=== PATIENT | female | born 1950 | race Caucasian/White ===

== ENCOUNTER 2019-04-01 22:10 | Emergency (ER) | payer OTHER, SELFPAY ==
[2019-04-01 22:12] VITALS: BP 141/80; PULSE 82; RESP 18; TEMP 36.1; O2SAT 98; BMI 23.4
--- NOTE | 2019-04-01 22:36 | EKG12_ITS ---
Test Reason : CP Blood Pressure : / mmHG Vent. Rate : 082 BPM Atrial Rate : 082 BPM P-R Int : 150 ms QRS Dur : 084 ms QT Int : 372 ms P-R-T Axes : 046 002 040 degrees QTc Int : 434 ms Normal sinus rhythm Normal ECG Confirmed by SANDHYA CHAVEZ, MOLLY ([id number]), news videotape editor CHRIS NETTLES ([id number]) on 04/03/2019 10:16:25 A M Referred By: RAMAN Confirmed By:CHANTE ARTHUR MD
--- NOTE | 2019-04-01 22:37 | RAD_ITS ---
STUDY: X-RAY CHEST REASON FOR EXAM: Female, 69 years old. Chest pain. TECHNIQUE: PA and lateral chest. COMPARISON: None. FINDINGS: Left lower lobe granuloma. Lung dukes are otherwise clear. There is no demonstrated pleural abnormality. Normal size heart. Normal mediastinum and santiago. Normal visualized pulmonary arteries. Normal visualized aortic arch and descending thoracic aorta. Normal visualized thoracic spine. Normal visualized ribs, clavicles, and shoulders. There is no demonstrated abnormality of the visualized soft tissue structures of the upper abdomen. RAD/Chest PA and Lateral IMPRESSION: 1. No acute findings. 2. Old granulomatous disease. Electronically Signed: Imelda Long MD at 22:55 EDT Tel , Service support ,
--- NOTE | 2019-04-01 22:37 | ED.VIS.GEN ---
History of Present Illness Chief Complaint: Chest Pain Informant: Patient Narrative: There is presents with chest discomfort. It is resolved currently. It started approximately 5 and half hours ago and lasted for 5 hours. Left-sided tightness. Radiation to the left shoulder blade associate with nausea. Denies any other associated symptoms. It was not exertion related. She had similar event 4 years ago it resolved on its own. Patient stated she had a migraine this morning and took her migraine medication and run away and is unsure if this is a side effect from her migraine medicine. Worsened by nothing. Relieved with time. Denies any cardiac risk factors including diabetes, hypertension, high cholesterol, history of smoking, family history. Denies any pulmonary embolism risk factors including recent trips leg pain or history of PE. Denies any dissection risk factors. No previous stress test or heart cath. She took Advil earlier this evening Past Medical History - Allergies and Home Meds Allergies/Adverse Reactions: Allergies No Known Allergies Allergy (Verified 04/01/19 22:12) Primary Care Physician: Connor Brink DO [Primary Care Provider] - Prior records reviewed: Yes Past Medical History: - - Migraine Lives: With Family Smoking Status: Never smoker Alcohol: None Drugs: None Review of Systems General: Denies: Chills, Fever, Sweats Eyes: Denies: Visual changes - bilaterally, Diplopia ENT: Denies: Rhinorrhea, Sore throat Cardiovascular: Reports: Chest pain. Denies: Palpitations Respiratory: Denies: Dyspnea, Cough, Dyspnea on exertion Gastrointestinal: Reports: Nausea. Denies: Abdominal pain, Vomiting, Diarrhea, Melena, Hematochezia Genitourinary: Denies: Dysuria, Hematuria, Frequency Musculoskeletal: Denies: Back pain, Extremity Pain Skin: Denies: Rash, Wounds Neurological: Denies: Headache, Weakness, Numbness Physical Exam Vital Signs/Narrative: Vital Signs Temp Pulse Resp BP Pulse Ox 04/01/19 22:12 97.0 F L 82 18 141/80 H 98 General: Well nourished, Well developed, No Acute Distress Head: Normocephalic, Atraumatic Eyes: Perrl, EOMI ENT: Moist mucous membranes, No rhinorrhea Neck: Supple, Nontender Cardiovascular: Regular rate, Regular rhythm, No murmurs Respiratory: No distress, CTA bilaterally, Chest nontender Abdomen: Soft, Nontender, Nondistended, Normal bowel sounds Back: Nontender, Normal Inspection Extremities: Nontender, No edema Skin: Normal color, No rash Neurological: Alert, Oriented x3, Cranial nerves II-XII grossly intact, Normal Strength, Normal Sensation Psychological: Normal affect, Normal Mood Diagnostic/Tx/Re-eval - Medical Decision Making EKG shows sinus rhythm at a rate of 82 without acute ischemia or arrhythmia. Lab work and chest x-ray obtained. Patient given a dose of aspirin x-ray normal. Lab work shows mild chronic renal insufficiency otherwise troponin and CBC negative. Patient remained stable without pain in the department. I discussed admission with the patient. I offered this to her. She is low risk heart score. She is PERC negative other than her age. I do not think she has a PE. The patient does not want to be admitted. She like to follow-up with her family doctor for outpatient work-up if it comes back she will return. ED Disposition - Plan for ED Patient: Disposition: Home or Assisted Living Diagnosis: Chest pain at rest Instructions: CHEST PAIN, NonCardiac Referrals: Connor Brink DO [Primary Care Provider] -
[2019-04-01 22:42] LABS: Absolute Lymphocyte Count 3.38 X10^3/uL (0.83-4.51); Absolute Neutrophil Count 4.7 X10^3/uL (2.0-7.7); Basophil# 0.06 X10^3/uL; Basophil% 0.7 % (0-1); Eosinophil# 0.22 X10^3/uL; Eosinophils% 2.4 % (0-5); Hematocrit 42.1 % (37-47); Hemoglobin 13.3 g/dL (12.0-15.0); Lymphocyte # 3.38 X10^3/ul (4.0); Lymphocyte % 37.1 % (19-41); Mean Corp Hgb Conc 31.6 g/dL (32-36); Mean Corpuscular Hgb 30.5 pg (27.0-32.0); Mean Corpuscular Volume 96.6 fL (81-99); Monocyte# 0.76 X10^3/uL; Monocyte% 8.3 % (0-10); NRBC Flagged by Analyzer 0 % (0-5); Neutrophil # 4.68 X10^3/uL (2.7-7.7); Neutrophil % 51.3 % (47-70); Platelet Count 245 K/mm3 (150-450); RBC Distribution Width CV 13.2 % (11.6-14.6); RBC Distribution Width SD 46.9 fl (35.1-43.9); Red Blood Count 4.36 M/mm3 (4.2-5.4); White Blood Count 9.1 K/mm3 (4.4-11.0)
[2019-04-01] MEDS: Aspirin 81 MG TAB.CHEW 324 MG PO (22:48)
[2019-04-01 22:50] VITALS: O2SAT 97
[2019-04-01 22:56] LABS: Anion Gap 5 (5-15); BUN 18 mg/dL (7-18); Calcium,Total 9.4 mg/dL (8.5-10.1); Chloride 106 mmol/L (98-107); Creatinine, Serum 1.29 mg/dL (0.55-1.02); EST Glomerular Filtration Rate 44 mL/min (>60); Est Glom Filt Rate - Afr Amer 53 mL/min (>60); Glucose 100 mg/dL (74-106); Potassium 3.5 mmol/L (3.5-5.1); Sodium Level 139 mmol/L (136-145)
[2019-04-01 23:14] VITALS: BP 132/77; PULSE 80; RESP 14; O2SAT 98
== END 2019-04-01 23:15 | disposition home or self-care (01) ==
PROVIDERS: Emergency Provider Emergency Medicine; Family Provider Family Medicine; PCP Family Medicine
DX: R07.9 Chest pain, unspecified (principal); G43.909 Migraine, unspecified, not intractable, without status migrainosus
CPT/HCPCS: 71046; 80048; 84484; 85025; 93005; 99285; A4216

== ENCOUNTER → 2019-08-19 10:06 | Outpatient (CLI) | payer MEDICARE, SELFPAY ==
--- NOTE | 2019-08-19 10:11 | BI_ITS ---
MAMMOGRAPHY - BILATERAL SCREENING REASON FOR EXAM: Female, 69 years old. Routine annual screening examination. PERTINENT HISTORY: Non-contributory. TECHNIQUE: Digital bilateral breast lauren (3D mammographic acquisition) in the CC and MLO projections. 2-D mediolateral oblique (MLO) and craniocaudad (CC) views of both breasts were obtained. CAD: Full Field Digital Mammography with Computer Added Detection was performed. COMPARISON: Comparison is made with prior outside examination dated September 06, 2016. FINDINGS: Breast Composition: There are scattered areas of fibroglandular density. There are no dominant masses or suspicious calcifications. No other significant abnormalities are identified. There has been no significant change since the prior study. BI/SCREEN MAMM (CAD) W/LAUREN BILAT IMPRESSION: Stable bilateral screening mammogram. Yearly follow-up mammogram recommended. (A) ASSESSMENT CATEGORY: BIRADS Category 1: Negative. A letter regarding these results will be sent to the patient by the facility within 30 days. Approximately 10% of breast cancers are not detected by mammography. A normal mammogram should not delay biopsy of a clinically suspicious abnormality. [id number] Electronically Signed: Eugene De Leno, at 14:19 EST , Service support ,
--- NOTE | 2019-08-19 10:29 | BD_ITS ---
STUDY: DUAL ENERGY X-RAY ABSORPTIOMETRY / DXA REASON FOR EXAM: Female, 69 years old. 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 COMPARISON: None. FINDINGS: Lumbar Spine (L1-L4): g/cm2 (0.801) / T-score (-3.2) / Z-score (-1.5) Findings are suggestive of osteoporosis with a high fracture risk. Increased kyphosis. Left Femur Total: g/cm2 (0.700) / T-score (-2.4) / Z-score (-1.1) Left Femoral Neck: g/cm2 (0.606) / T-score (-3.1) / Z-score (-1.5) Right Femur Total: g/cm2 (0.636) / T-score (-3.0) / Z-score (-1.6) Right Femoral Neck: g/cm2 (0.600) / T-score (-3.1) / Z-score (-1.6) BD/Dexa Bone Density Study IMPRESSION: The patient is considered osteoporotic as outlined below according to World Mikey Organization (WHO) criteria with a high fracture risk. Reference Information: The T-score is the number of standard deviations above or below the standard which is normal for young adults at their peak bone mineral density. The World Health Organization (WHO) interprets the T-scores as follows: Above -1 Normal bone density Between -1 and -2.5 Osteopenia Equal to / or below -2.5 Osteoporosis As a practical clinical guideline, osteopenia may be graded as follows: Mild -1 through -1.5 Moderate -1.6 through -2.0 Severe -2.1 through -2.4 The Z-score is the number of standard deviations above or below age-matched controls. A Z-score of less than -1.5 would be considered abnormal. References: 1. NIH Osteoporosis and Related Bone Diseases http://www.osteo.org 2. International Society for Clinical Densitometry http://www.iscd.org 3. National Osteoporosis Foundation http://www.nof.org Electronically Signed: Eugene De Leon, at 15:12 EST , Service support ,
== END ==
LOC: OPBD 10:07
PROVIDERS: PCP Internal Medicine; Referring Provider Internal Medicine; Visit Provider Internal Medicine
DX: Z12.31 Encounter for screening mammogram for malignant neoplasm of breast (principal); Z78.0 Asymptomatic menopausal state
CPT/HCPCS: 77063; 77067; 77080

== ENCOUNTER 2022-03-22 15:11 | Emergency (ER) | payer MEDICARE, SELFPAY ==
[2022-03-22 15:13] VITALS: BP 100/85; PULSE 84; RESP 16; TEMP 36.6; O2SAT 98; BMI 20.6
--- NOTE | 2022-03-22 16:21 | EDS_ITS ---
HPI History of Present Illness Chief Complaint: General Illness Informant: patient Onset/Context/Timing Onset: Days Context: Gradual Onset Timing: Continuous Quality: Sharp Location: Left lower premolar Worsened by: Chewing and biting Relieved by: Nothing Narrative Narrative: Patient presents with left lower dental infection that has been getting worse over the past few days. Patient states this is making her feel nauseated. Patient states it also made her have palpitations where she felt like her heart was racing. Patient denies any vomiting. Patient denies any fevers or chills. Patient states her pain is over the left lower premolar area. Patient describes it as sharp. Patient describes her nausea as a sickly feeling. Patient states her pain is worse whenever she chews or bites down on her left lower premolars. Patient denies any sore throat or difficulty swallowing. PFSH PFSH Medical History no medical history no medical history Home Medications penicillin V potassium 500 mg tablet 500 mg PO 4X/DAY #40 tabs 03/22/22 [Rx Last Taken Unknown] Allergy/AdvReac Type Severity Reaction Status Date / Time No Known Allergies Allergy Verified 03/22/22 15:14 Surgical History (Updated 03/22/22 @ 17:01 by Mirna Remy) History of History of hysterectomy Hx of oral surgery Social History Smoking Status: Never smoker ROS ROS ED Constitutional Constitutional ED: Denies chills or fever(s) Eyes Eyes: Denies blurry vision or change in vision ENT ENT ED: Denies rhinorrhea or sore throat Cardiovascular Cardiovascular: Reports palpitations and racing heartbeat; Denies chest pain Respiratory/Chest Respiratory/Chest: Denies cough or dyspnea Gastrointestinal Gastrointestinal: Reports nausea; Denies vomiting Genitourinary Genitourinary ED: Denies dysuria or hematuria Musculoskeletal Musculoskeletal: Denies back pain or neck pain Integumentary Denies abscess or rash Neurologic Neurologic: Reports headache(s); Denies weakness Allergic/Immunologic Allergic/Immunologic ED: Denies mouth swelling or urticaria EXAM Physical Exam Const Vital Signs: 03/22/22 15:13 03/22/22 17:00 03/22/22 17:07 Temperature 97.8 F Temperature Source Temporal Pulse Rate 84 65 Respiratory Rate 16 13 Respiratory Effort Normal Non-Labored Respiratory Pattern Normal Blood Pressure 100/85 H 132/71 H Blood Pressure Mean 90 91 Pulse Ox 98 100 Oxygen Delivery Method Room Air Room Air Positive well nourished and well developed General Appearance ED: well developed and NAD HEENT Reports moist mucous membranes HEENT Narrative: There is some gingival edema noted over the left lower second premolar. There is no fluctuance. There is no discharge or drainage. There is no sublingual edema or erythema. There is no evidence of Jason's angina. Neck supple and no JVD General: Negative for tenderness Resp normal respiratory effort and clear to auscultation bilaterally Cardio regular rate, regular rhythm and no murmurs GI normal to inspection, nondistended, normoactive bowel sounds and non-tender Palpation: soft Extremity normal to inspection General Extremety ED: Negative for edema or tenderness General Extremity: Negative for edema Neuro oriented x3, CN's II-XII intact bilaterally and no sensory deficits noted Sensorium / Orientation: alert Motor Exam: strength 5/5 throughout Psych mental status grossly normal Skin no rashes or lesions noted MDM MDM MDM Narrative Medical decision making narrative: EKG was obtained. On my interpretation, it showed a normal sinus rhythm with a rate of 64. MA interval, QRS interval, and QTc intervals were all normal. Brewster was normal. There are no acute ST or T wave changes. CBC was within normal limits. Basic metabolic profile was essentially within normal limits. High- sensitivity troponin was normal. Patient was given a dose of Pen-Vee K here. Patient was given a prescription for Pen-Vee K. Patient was instructed to follow-up with her primary care physician in 5 to 7 days. Patient was also instructed to follow-up with her dentist. Patient understood and was agreeable with the plan. All questions were answered. Lab Data Attestation: I reviewed the patient's lab results. Labs: Laboratory Results - last 24 hr 03/22/22 03/22/22 17:32 17:32 WBC 3.7 L RBC 4.73 Hgb 14.3 Hct 44.7 MCV 94.5 MCH 30.2 MCHC 32.0 RDW Std Deviation 46.3 H RDW Coeff of Lester 13.2 Plt Count 147 L MPV 9.4 Immature Gran % (Auto) 0.000 Neut % (Auto) 44.6 L Lymph % (Auto) 40.5 [place] % (Auto) 14.1 H Eos % (Auto) 0.3 Baso % (Auto) 0.5 Absolute Neuts (auto) 1.6 L Absolute Lymphs (auto) 1.49 Nucleated RBC % 0 Differential Comment SCANNED Reactive Lymphocytes 1+ Sodium 140 Potassium 3.8 Chloride 105 Carbon Dioxide 26.0 Anion Gap 9 BUN 16 Creatinine 1.11 H Estim Creat Clear Calc 33.87 Est GFR (MDRD) Af Amer 63 Est GFR (MDRD) Non-Af 52 L BUN/Creatinine Ratio 14.4 Glucose 94 Calcium 9.6 Troponin I High Sens 9 EKG Initial EKG: Attestation: I personally reviewed and interpreted this EKG as follows: Interpretation: Sinus Rhythm (64) and No Acute Injury Pattern Prior EKG tracings: available for review Prior: Unchanged (04/01/2019) Discharge Plan Triage Chief Complaint: General Illness Other Complaint: Dental ED Provider: Cristo Wilkes Dx/Rx/DC Orders Clinical Impression: Abscess, dental, Palpitations Instructions: ED Dental Abscess, ED Palpitations Prescriptions: New penicillin V potassium 500 MG tablet 500 mg PO 4X/DAY Qty: 40 0RF Primary Care Provider: Rekha Bearden Referrals: Rekha Bearden DO [Primary Care Provider] - 5-7 Days Disposition Disposition: Home, Self Care
--- NOTE | 2022-03-22 16:27 | EKG12_ITS ---
Test Reason : NOT FEELING WELL Blood Pressure : / mmHG Vent. Rate : 064 BPM Atrial Rate : 064 BPM P-R Int : 146 ms QRS Dur : 070 ms QT Int : 394 ms P-R-T Axes : 062 006 046 degrees QTc Int : 406 ms Normal sinus rhythm Normal ECG Confirmed by HUMA CHAVEZ, ABRAHAM ([id number]), book or script editor LARA JOHNS ([id number]) on 03/24/2022 9:32:22 AM Referred By: Confirmed By:ABRAHAM FINN MD
[2022-03-22 16:54] LABS: Absolute Lymphocyte Count 1.49 X10^3/uL (0.83-4.51); Absolute Neutrophil Count 1.6 X10^3/uL (2.0-7.7); Basophil# 0.02 X10^3/uL; Basophil% 0.5 % (0-1); Eosinophil# 0.01 X10^3/uL; Eosinophils% 0.3 % (0-5); Hematocrit 44.7 % (37-47); Hemoglobin 14.3 g/dL (12.0-15.0); Lymphocyte # 1.49 X10^3/ul (0.83-4.51); Lymphocyte % 40.5 % (19-41); Mean Corpuscular Hgb 30.2 pg (27.0-32.0); Mean Corpuscular Volume 94.5 fL (81-99); Mean Platelet Vol. 9.4 fl (6.2-12.0); Monocyte# 0.52 X10^3/uL; Monocyte% 14.1 % (0-10); NRBC Flagged by Analyzer 0 % (0-5); Neutrophil # 1.64 X10^3/uL (2.7-7.7); Neutrophil % 44.6 % (47-70); POSITIVE MORPHOLOGY YES; Platelet Count 147 K/mm3 (150-450); RBC Distribution Width CV 13.2 % (11.6-14.6); RBC Distribution Width SD 46.3 fl (35.1-43.9); Red Blood Count 4.73 M/mm3 (4.2-5.4); White Blood Count 3.7 K/mm3 (4.4-11.0)
[2022-03-22 16:55] LABS: Differential Indicated SCAN CRITERIA MET
[2022-03-22] MEDS: Penicillin Vk 250 MG Tablet 500 MG PO (16:58)
[2022-03-22 17:07] VITALS: BP 132/71; PULSE 65; RESP 13; O2SAT 100
[2022-03-22 17:11] LABS: Differential Comment SCANNED; Reactive Lymphocyte 1+
[2022-03-22 17:15] LABS: Anion Gap 9 (5-15); BUN 16 mg/dL (7-18); BUN/Creat Ratio 14.4 RATIO (10-20); Calcium,Total 9.6 mg/dL (8.5-10.1); Chloride 105 mmol/L (98-107); Creatinine, Serum 1.11 mg/dL (0.55-1.02); EST Glomerular Filtration Rate 52 mL/min (>60); Est Glom Filt Rate - Afr Amer 63 mL/min (>60); Estimated Creatinine Clearance 33.87 ml/min; Glucose 94 mg/dL (74-106); Potassium 3.8 mmol/L (3.5-5.1); Sodium Level 140 mmol/L (136-145); Troponin-I HS 9 pg/mL (3.0-54.0)
[2022-03-22 17:55] VITALS: BP 142/76; PULSE 77; RESP 16; O2SAT 97
== END 2022-03-22 17:56 | disposition home or self-care (01) ==
PROVIDERS: Emergency Provider Emergency Medicine; PCP Internal Medicine; Visit Provider Emergency Medicine
DX: K04.7 Periapical abscess without sinus (principal); R00.2 Palpitations
CPT/HCPCS: 80048; 84484; 85025; 93005; 99284; A4216

== ENCOUNTER → 2022-05-01 | Outpatient (CLI) | payer MEDICARE, SELFPAY ==
--- NOTE | 2022-05-01 14:49 | EKG12_ITS ---
Test Reason : PRE-OP Blood Pressure : / mmHG Vent. Rate : 067 BPM Atrial Rate : 067 BPM P-R Int : 152 ms QRS Dur : 070 ms QT Int : 370 ms P-R-T Axes : 064 003 032 degrees QTc Int : 390 ms Normal sinus rhythm Normal ECG Confirmed by REESE CHAVEZ, ARIELLA ([id number]), non linear editor CHRIS NETTLES ([id number]) on 05/02/2022 11:06:54 AM Referred By: JOSE R Confirmed By:ARIELLA LEIGH MD
--- NOTE | 2022-05-01 14:49 | CT_ITS ---
STUDY: CT LEFT FEMUR WITHOUT CONTRAST REASON FOR EXAM: Female, 72 years old. PRE OP WASC/VARUS DEFORMIT- SHANNAN PROTOCOL RADIATION DOSAGE (If Supplied By Facility): CTDIvol = ( 17.34 ) mGy, DLP = ( 1179.61 ) mGycm TECHNIQUE: Transaxial CT imaging of the femur was performed. Sagittal and coronal images were reconstructed. Individualized dose optimization techniques were used for this CT. COMPARISON: None. FINDINGS: There is moderate joint space narrowing of the left hip. There is moderate osteoarthritis involving the knee more pronounced involving the medial compartment. The left femur appears intact without evidence of fracture, subluxation or dislocation. There is no evidence of periosteal reaction. There is a moderate suprapatellar joint effusion. Skin marker is placed along the anterolateral aspect of the left thigh. The skin and subcutaneous tissues and regional musculature appears intact. There is a moderate-sized Pate''s cyst measuring 2.5 cm transverse by 2.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 Pate''s cyst. Moderate suprapatellar joint effusion. Electronically Signed: Waqas Dasilva MD, MAR at 16:44 EDT ,
[2022-05-01 15:54] LABS: Absolute Lymphocyte Count 2.08 X10^3/uL (0.83-4.51); Absolute Neutrophil Count 4.7 X10^3/uL (2.0-7.7); Basophil# 0.05 X10^3/uL; Basophil% 0.7 % (0-1); Eosinophil# 0.08 X10^3/uL; Eosinophils% 1.1 % (0-5); Hematocrit 42.5 % (37-47); Hemoglobin 13.6 g/dL (12.0-15.0); Lymphocyte # 2.08 X10^3/ul (0.83-4.51); Lymphocyte % 27.5 % (19-41); Mean Corpuscular Hgb 30.2 pg (27.0-32.0); Mean Corpuscular Volume 94.4 fL (81-99); Mean Platelet Vol. 9.3 fl (6.2-12.0); Monocyte# 0.63 X10^3/uL; Monocyte% 8.3 % (0-10); NRBC Flagged by Analyzer 0 % (0-5); Neutrophil # 4.71 X10^3/uL (2.7-7.7); Neutrophil % 62.1 % (47-70); Platelet Count 235 K/mm3 (150-450); RBC Distribution Width CV 13.2 % (11.6-14.6); RBC Distribution Width SD 45.9 fl (35.1-43.9); White Blood Count 7.6 K/mm3 (4.4-11.0)
[2022-05-01 16:15] LABS: Hemoglobin A1c 5.5 % (3.8-5.6)
[2022-05-01 16:36] LABS: Albumin, Serum 3.8 g/dL (3.2-5.0); Anion Gap 4 (5-15); BUN 15 mg/dL (7-18); BUN/Creat Ratio 10.9 RATIO (10-20); Calcium,Total 9.7 mg/dL (8.5-10.1); Chloride 105 mmol/L (98-107); Creatinine, Serum 1.37 mg/dL (0.55-1.02); EST Glomerular Filtration Rate 41 mL/min (>60); Est Glom Filt Rate - Afr Amer 49 mL/min (>60); Glucose 103 mg/dL (74-106); Sodium Level 140 mmol/L (136-145)
== END | disposition home or self-care (01) ==
PROVIDERS: PCP Internal Medicine; Visit Provider Physician Assistant
DX: M21.162 Varus deformity, not elsewhere classified, left knee (principal); Z01.818 Encounter for other preprocedural examination
CPT/HCPCS: 36415; 73700; 80048; 82040; 83036; 85025; 93005

== ENCOUNTER → 2022-08-28 | Outpatient (CLI) | payer MEDICARE, SELFPAY ==
[2022-08-28 16:14] LABS: Absolute Neutrophil Count 4.3 X10^3/uL (2.0-7.7); Basophil# 0.06 X10^3/uL; Basophil% 0.8 % (0-1); Eosinophil# 0.08 X10^3/uL; Eosinophils% 1.1 % (0-5); Hematocrit 45.1 % (37-47); Hemoglobin 14.2 g/dL (12.0-15.0); Lymphocyte % 29.9 % (19-41); Mean Corp Hgb Conc 31.5 g/dL (32-36); Mean Corpuscular Hgb 30.5 pg (27.0-32.0); Mean Platelet Vol. 9.3 fl (6.2-12.0); Monocyte# 0.65 X10^3/uL; Monocyte% 8.8 % (0-10); NRBC Flagged by Analyzer 0 % (0-5); Neutrophil # 4.32 X10^3/uL (2.7-7.7); Neutrophil % 58.9 % (47-70); Platelet Count 235 K/mm3 (150-450); RBC Distribution Width CV 13.3 % (11.6-14.6); Red Blood Count 4.65 M/mm3 (4.2-5.4); White Blood Count 7.4 K/mm3 (4.4-11.0)
[2022-08-28 17:16] LABS: Vitamin B12 387 pg/mL (211-911)
[2022-08-28 17:22] LABS: ALB/GLOB Ratio 1.1 RATIO (0.9-2.4); AST(SGOT) 27 U/L (15-37); Alanine Aminotransfer ALT/SGPT 27 U/L (13-56); Albumin, Serum 3.8 g/dL (3.2-5.0); Alkaline Phosphatase 106 U/L (45-117); Anion Gap 6 (5-15); BUN 19 mg/dL (7-18); BUN/Creat Ratio 15.4 RATIO (10-20); Calcium,Total 9.9 mg/dL (8.5-10.1); Chloride 106 mmol/L (98-107); Creatinine, Serum 1.23 mg/dL (0.55-1.02); EST Glomerular Filtration Rate 46 mL/min (>60); Est Glom Filt Rate - Afr Amer 55 mL/min (>60); Globulin 3.6 g/dL (2.2-4.2); Glucose 77 mg/dL (74-106); Potassium 3.9 mmol/L (3.5-5.1); Protein, Total 7.4 g/dL (6.4-8.2); Sodium Level 142 mmol/L (136-145); T4 Free Direct 1.11 ng/dL (0.76-1.46)
== END | disposition home or self-care (01) ==
LOC: LAB 15:36
PROVIDERS: PCP Internal Medicine; Visit Provider Internal Medicine
DX: M19.90 Unspecified osteoarthritis, unspecified site (principal); R41.3 Other amnesia
CPT/HCPCS: 36415; 80053; 82607; 84439; 84443; 85025

== ENCOUNTER → 2022-09-04 | Outpatient (CLI) | payer MEDICARE, SELFPAY ==
--- NOTE | 2022-09-04 14:34 | MRI_ITS ---
STUDY: MRI BRAIN WITHOUT CONTRAST REASON FOR EXAM: Female, 72 years old. Memory Loss -- *Pt refused Coronal T2 and contrast images d/t clasutrophobia, confusion TECHNIQUE: Standardized multiplanar fat and water weighted pulse sequences were obtained. COMPARISON: None. FINDINGS: Mild atrophy and periventricular white matter ischemic change without mass effect or restricted diffusion. Normal bilateral basal ganglia. Normal thalami. There is no extra-axial fluid accumulation. Normal flow voids within the major intracranial circulation suggesting patency by spin echo criteria. Normal sella turcica, pituitary gland, infundibular stalk, optic chiasm and hypothalamus. Normal tectal plate and pineal gland. Normal midbrain, liss and medulla. Normal cerebellum. Normal basal cisterns. Normal bilateral temporal bones. Normal bilateral internal auditory canals. No demonstrated orbital abnormality, within the constraints of a routine brain study. Normal visualized paranasal sinuses. Normal calvarium and skull base. Normal visualized soft tissue structures. Normal visualized upper cervical spine. MRI/Brain without Contrast IMPRESSION: Mild atrophy and periventricular matter ischemic change. . No acute infarct or other significant abnormality Electronically Signed: Jermain Whitman MD at 16:42 EST Reading Location ID and State: [facility] / [place] , Service support ,
--- NOTE | 2022-09-04 14:40 | BD_ITS ---
STUDY: DUAL ENERGY X-RAY ABSORPTIOMETRY / DXA REASON FOR EXAM: Female, 72 years old. postmenapausel/osteoarthritis TECHNIQUE: Bone Mineral Density (BMD) measurements of lumbar spine and bilateral hips were obtained. COMPARISON: Comparison is made with prior study dated August 19, 2019. FINDINGS: Lumbar Spine (L1-L4): g/cm2 (0.748) / T-score (-2.7) / Z-score (-0.6) Findings are suggestive of osteoporosis with a high fracture risk. Left Femur Total: g/cm2 (0.491) / T-score (-3.7) / Z-score (-2.2) Left Femoral Neck: g/cm2 (0.391) / T-score (-4.1) / Z-score (-2.3) Right Femur Total: g/cm2 (0.500) / T-score (-3.6) / Z-score (-2.1) Right Femoral Neck: g/cm2 (0.404) / T-score (-4.0) / Z-score (-2.2) The T-Scores on the most recent prior examination were: Lumbar Spine (L1-L4): There has been improvement of bone density since the previous examination. Left Femur Total: which represents a worsening of 23.6%. Right Femur Total: which represents a worsening of 13.8%. BD/Dexa Bone Density Study IMPRESSION: The patient is considered osteoporotic as outlined below according to World Mikey Organization (WHO) criteria with a high fracture risk. There has been worsening of bone density since the previous examination. Reference Information: The T-score is the number of standard deviations above or below the standard which is normal for young adults at their peak bone mineral density. The World Health Organization (WHO) interprets the T-scores as follows: Above -1 Normal bone density Between -1 and -2.5 Osteopenia Equal to / or below -2.5 Osteoporosis As a practical clinical guideline, osteopenia may be graded as follows: Mild -1 through -1.5 Moderate -1.6 through -2.0 Severe -2.1 through -2.4 The Z-score is the number of standard deviations above or below age-matched controls. A Z-score of less than -1.5 would be considered abnormal. References: 1. NIH Osteoporosis and Related Bone Diseases www osteo.org 2. International Society for Clinical Densitometry www iscd.org 3. National Osteoporosis Foundation www nof.org Electronically Signed: Eugene De Leon MD at 13:35 EST ,
== END | disposition home or self-care (01) ==
PROVIDERS: PCP Internal Medicine; Referring Provider Internal Medicine; Visit Provider Internal Medicine
DX: R41.3 Other amnesia (principal); Z78.0 Asymptomatic menopausal state; M19.90 Unspecified osteoarthritis, unspecified site
CPT/HCPCS: 70551; 77080

== ENCOUNTER → 2022-09-06 | Outpatient (CLI) | payer MEDICARE, SELFPAY ==
[2022-09-06 17:32] LABS: Vitamin D,25 Hydroxy 43.8 ng/mL
== END | disposition home or self-care (01) ==
PROVIDERS: PCP Internal Medicine; Referring Provider Internal Medicine; Visit Provider Internal Medicine
DX: M81.0 Age-related osteoporosis without current pathological fracture (principal)
CPT/HCPCS: 36415; 82306

== ENCOUNTER 2023-03-27 15:34 | Emergency (ER) | payer MEDICARE, SELFPAY ==
[2023-03-27 15:38] VITALS: BP 122/76; PULSE 65; RESP 16; TEMP 36.6; O2SAT 100; BMI 18.2
--- NOTE | 2023-03-27 16:13 | ED.VIS.GI ---
HPI HPI - GI History of Present Illness Chief Complaint: Nausea/Vomiting Informant: patient and family Abdominal Pain/Flank Pain Onset: Days Context: Gradual Onset Timing: Intermittent Maximum Severity: Mild Nausea/Vomiting/Emesis GI Symptom: Positive for Nausea and Vomiting Onset: Today Severity: Mild Diarrhea/Melena/Hematochezia GI Symptom: Positive for Diarrhea Onset: Days Stool Quality: Positive for Loose Severity: Mild Associated Symptoms Associated Symptoms: Negative for Dysuria, Frequency, Hematuria or Urgency Narrative Narrative: 73-year-old female history of dementia lives at home. This year she has been on 4-6 different courses of p.o. penicillin due to a dental infection. 2 weeks ago she had a tooth removed. She has had some mild nausea very minimal vomiting and some loose stools. Family called the dental office who wanted her to be seen in the emergency department. No fever. No abdominal pain. No dysuria. Prior similar symptoms: Yes Recent Illness/Hospitalization: No PFSH PFSH Medical History Dementia Headache Health care maintenance Memory loss Osteoarthritis Osteoporosis Home Medications multivitamin 1 tab PO DAILY 09/06/22 [History Last Taken Unknown] donepezil 5 mg tablet See Rx Instructions .Route .COMPLEX #30 tabs 10/30/22 [Rx Last Taken Unknown] ondansetron 4 mg disintegrating tablet 4 mg PO Q6H PRN nausea and vomiting #7 tabs 03/27/23 [Rx Last Taken Unknown] Allergy/AdvReac Type Severity Reaction Status Date / Time No Known Allergies Allergy Verified 03/27/23 15:38 Surgical History History of History of hysterectomy Hx of oral surgery Social History Smoking Status: Never smoker alcohol intake: never substance use type: does not use ROS ROS ED ROS Narrative Nausea and loose stools. Review of Systems ROS Unobtainable: Denies due to encephalopathy Constitutional Constitutional ED: Denies chills or fever(s) ENT ENT ED: Denies ear pain Cardiovascular Cardiovascular: Denies chest pain or palpitations Respiratory/Chest Respiratory/Chest: Denies cough or dyspnea Gastrointestinal Gastrointestinal: Reports diarrhea, nausea and vomiting; Denies abdominal pain, constipation or melena Genitourinary Genitourinary ED: Denies dysuria or hematuria Musculoskeletal Musculoskeletal: Denies arthralgias, back pain, myalgias or neck pain Integumentary Denies abscess, Abrasions or rash Neurologic Neurologic: Denies headache(s) Psychiatric Psychiatric: Denies anxiety or depression Endocrine Endocrinology: Denies polydipsia or polyphagia Hematologic/Lymphatic Hematologic/Lymphatic: Denies easy bleeding or easy bruising Allergic/Immunologic Allergic/Immunologic ED: Denies mouth swelling or tongue swelling EXAM Physical Exam Narrative Exam Narrative: 73-year-old female no acute distress. Vital signs stable afebrile. 2 daughters present in room. H EENT exam unremarkable. Moist with membranes. No yeast infection. Neck nontender no lymphadenopathy. Lungs clear to auscultation. Heart regular rhythm rate about 65 no murmur. Chest wall nontender. Abdomen soft nontender. Nondistended normal bowel sounds no peritoneal signs. Moving all 4 extremities. Nontender no edema. Neurologically she is awake and alert with no focal motor deficits. Very benign exam. Const Vital Signs: 03/27/23 15:38 Temperature 97.9 F Temperature Source Temporal Pulse Rate 65 Respiratory Rate 16 Blood Pressure 122/76 H Blood Pressure Mean 91 Pulse Ox 100 Positive well nourished and well developed; Negative for obese, cachectic, contractures or unkempt General Appearance ED: well developed and NAD; Negative for unkempt, cachectic, contractures or pallor Nutritional Appearance: Negative for cachectic or obese HEENT Reports moist mucous membranes normocephalic and atraumatic; Negative for trauma or tenderness Eyes PERRL and EOMs intact bilaterally General Eye ED: Negative for pale conjunctiva or scleral icterus Neck no lymphadenopathy, supple and no JVD General: Negative for tenderness Carotids: Negative for other Lymph Lymphatic: Negative for other Resp normal respiratory effort and clear to auscultation bilaterally Effort and Inspection: Negative for respiratory distress Auscultation: Negative for rales, rhonchi, wheezes or diminished lung sounds Cardio regular rate, regular rhythm, S1 normal heart sound, S2 normal heart sound and no murmurs Rate: Negative for bradycardia or tachycardic Rhythm: Negative for abnormal rhythm GI non-tender, non-distended and no masses Inspection: Negative for abdominal distention Auscultation: normoactive bowel sounds Palpation: soft; Negative for tender, guarding, rigid, hepatomegaly, splenomegaly, hernia, mass, pulsatile mass or rebound tenderness present Back/Spine no CVA tenderness General Back: Negative for CVA tenderness Cervical Spine: Negative for cervical spine tenderness Thoracic Spine / Upper Back: Negative for thoracic spinal tenderness Lumbar Spine / Lower Back: Negative for lumbar spinal tenderness Coccyx: Negative for other Extremity full ROM General Extremety ED: Negative for edema or tenderness General Extremity: Negative for edema Neuro CN's II-XII intact bilaterally and moves all extremities Sensorium / Orientation: alert, oriented to person and oriented to place Motor Exam: strength 5/5 throughout Psych mental status grossly normal and thought process normal Appearance: Negative for unkempt Attitude: No agitated Mood & Affect: Negative for depressed, anxious or tearful Skin no wounds General Skin Exam: Negative for jaundice or pallor Lesions: no lesions Rashes: no rashes Trauma: Negative for abrasion Nails: Negative for discolored MDM MDM MDM Narrative Medical decision making narrative: 73-year-old female recently had a tooth pulled has been off and on amoxicillin for dental infections throughout the year. Clinically it really does not sound like C. difficile she has not had that much diarrhea. She might be mildly dehydrated but does not look significant dehydrated on exam. Her vital signs are stable exam is benign. Screening labs will be obtained and she will be treated a liter normal saline given Zofran for nausea. We will send a CT Steffes culture if she has a loose bowel movement. Repeat exam at 5:37 PM patient doing well. Abdomen benign. She will be discharged home with Zofran for nausea. I currently see no signs of a yeast infection in her mouth. Her diarrhea has seemed pretty benign and did not appear to be C. difficile and she has had no diarrhea here we are going to send her for culture she had 1. Uncomfortable with her being discharged home with Zofran for nausea fluids and rest I did explain to the family she is mildly dehydrated and outpatient follow-up. History & Record Review Discussion w/independent historian: Patient and Family Lab Data Attestation: I reviewed the patient's lab results. Lab results narrative: CBC unremarkable. White count 8.4. H&H of 13 and 44. Platelets 217. Electrolytes show a gap of 3 BUN and creatinine 24 and 1.1 consistent with mild dehydration. Glucose 140. Liver enzymes are unremarkable. Labs: Laboratory Results - last 24 hr 03/27/23 16:31 WBC 8.4 RBC 4.49 Hgb 13.9 Hct 44.0 MCV 98.0 MCH 31.0 MCHC 31.6 L RDW Std Deviation 47.8 H RDW Coeff of Lester 13.2 Plt Count 217 MPV 9.3 Immature Gran % (Auto) 0.500 Neut % (Auto) 84.9 H Lymph % (Auto) 10.9 L [place] % (Auto) 3.2 Eos % (Auto) 0.0 Baso % (Auto) 0.5 Absolute Neuts (auto) 7.1 Absolute Lymphs (auto) 0.91 Nucleated RBC % 0 Sodium 140 Potassium 4.7 Chloride 107 Carbon Dioxide 30.0 Anion Gap 3 L BUN 24 H Creatinine 1.13 H Estim Creat Clear Calc 30.54 Est GFR (MDRD) Af Amer 61 Est GFR (MDRD) Non-Af 50 L BUN/Creatinine Ratio 21.2 H Glucose 140 H Calcium 10.1 Total Bilirubin 0.40 AST 25 ALT 35 Alkaline Phosphatase 104 Total Protein 7.1 Albumin 3.9 Globulin 3.2 Albumin/Globulin Ratio 1.2 Discharge Plan Triage Chief Complaint: Nausea/Vomiting ED Provider: Abhijit Caldwell Dx/Rx/DC Orders Clinical Impression: Acute dehydration, History of dementia, Nausea & vomiting Instructions: ED Vomiting (Adult) Prescriptions: New ondansetron 4 mg tablet,disintegrating 4 mg PO Q6H PRN (Reason: nausea and vomiting) Qty: 7 0RF No Action multivitamin Tablet 1 tab PO DAILY donepezil 5 mg tablet See Rx Instructions .ROUTE .COMPLEX Qty: 30 1RF Dose Instruction: TAKE 1 TABLET BY MOUTH EVERYDAY AT BEDTIME Rx Instructions: TAKE 1 TABLET BY MOUTH EVERYDAY AT BEDTIME Primary Care Provider: Izaiah Freeman Referrals: Izaiah Freeman MD [Primary Care Provider] - 3-5 Days if not improving Activity Restrictions/Additional Instructions: Zofran as needed for nausea you may swallow or let dissolve under your tongue. Plenty of fluids and rest. You are mildly dehydrated. If you have continued diarrhea that may need to be checked with a stool culture. Follow-up with your doctor if not improving. Return if worse. Disposition Disposition: Home, Self Care
[2023-03-27] MEDS: Ondansetron 4 MG/2 ML Vial IV (16:30)
[2023-03-27] MEDS: 0.9% Normal Saline (1000mL) 1,000 ML 1000 ML IV (16:30)
[2023-03-27 16:47] LABS: Absolute Lymphocyte Count 0.91 X10^3/uL (0.83-4.51); Absolute Neutrophil Count 7.1 X10^3/uL (2.0-7.7); Basophil# 0.04 X10^3/uL; Basophil% 0.5 % (0-1); Hemoglobin 13.9 g/dL (12.0-15.0); Lymphocyte # 0.91 X10^3/ul (0.83-4.51); Lymphocyte % 10.9 % (19-41); Mean Corp Hgb Conc 31.6 g/dL (32-36); Mean Platelet Vol. 9.3 fl (6.2-12.0); Monocyte# 0.27 X10^3/uL; Monocyte% 3.2 % (0-10); NRBC Flagged by Analyzer 0 % (0-5); Neutrophil # 7.11 X10^3/uL (2.7-7.7); Neutrophil % 84.9 % (47-70); Platelet Count 217 K/mm3 (150-450); RBC Distribution Width CV 13.2 % (11.6-14.6); RBC Distribution Width SD 47.8 fl (35.1-43.9); Red Blood Count 4.49 M/mm3 (4.2-5.4); White Blood Count 8.4 K/mm3 (4.4-11.0)
[2023-03-27 16:59] LABS: ALB/GLOB Ratio 1.2 RATIO (0.9-2.4); AST(SGOT) 25 U/L (15-37); Alanine Aminotransfer ALT/SGPT 35 U/L (13-56); Albumin, Serum 3.9 g/dL (3.2-5.0); Alkaline Phosphatase 104 U/L (45-117); Anion Gap 3 (5-15); BUN 24 mg/dL (7-18); BUN/Creat Ratio 21.2 RATIO (10-20); Calcium,Total 10.1 mg/dL (8.5-10.1); Chloride 107 mmol/L (98-107); Creatinine, Serum 1.13 mg/dL (0.55-1.02); EST Glomerular Filtration Rate 50 mL/min (>60); Est Glom Filt Rate - Afr Amer 61 mL/min (>60); Estimated Creatinine Clearance 30.54 ml/min; Globulin 3.2 g/dL (2.2-4.2); Glucose 140 mg/dL (74-106); Potassium 4.7 mmol/L (3.5-5.1); Protein, Total 7.1 g/dL (6.4-8.2); Sodium Level 140 mmol/L (136-145)
[2023-03-27 18:00] VITALS: BP 124/69; PULSE 72; RESP 15; O2SAT 98
== END 2023-03-27 18:03 | disposition home or self-care (01) ==
PROVIDERS: Emergency Provider Emergency Medicine; PCP Internal Medicine; Visit Provider Emergency Medicine
DX: E86.0 Dehydration (principal); F03.90 Unspecified dementia, unspecified severity, without behavioral disturbance, psychotic disturbance, mood disturbance, and anxiety; R11.2 Nausea with vomiting, unspecified; R19.7 Diarrhea, unspecified; R10.9 Unspecified abdominal pain
CPT/HCPCS: 80053; 85025; 96361; 96374; 99282; J7030; A4216; J2405

== ENCOUNTER 2023-10-30 10:41 | Emergency (ER) | payer MEDICARE, SELFPAY ==
[2023-10-30 10:42] VITALS: BP 143/80; PULSE 89; RESP 16; TEMP 36.1; O2SAT 99; BMI 19.5
--- NOTE | 2023-10-30 11:04 | EKG12_ITS ---
Test Reason : Blood Pressure : / mmHG Vent. Rate : 082 BPM Atrial Rate : 082 BPM P-R Int : 154 ms QRS Dur : 074 ms QT Int : 356 ms P-R-T Axes : 066 040 057 degrees QTc Int : 415 ms Normal sinus rhythm Possible Left atrial enlargement Borderline ECG Confirmed by SANDHYA CHAVEZ, MOLLY ([id number]), commercial production editor LARA JOHNS ([id number]) on 11/04/2023 10:05:12 AM Referred By: Confirmed By:CHANTE ARTHUR MD
--- NOTE | 2023-10-30 11:05 | EX.ED.DYSGE1 ---
HPI History of Present Illness Chief Complaint: Nausea/Vomiting/Diarrhea Informant: patient and family Narrative Narrative: Patient presents secondary to nausea, vomiting, and diarrhea. Yesterday she had a headache with nausea and vomiting. She took her migraine medication. Her headache is somewhat improved but she continues to have nausea and vomiting. She now is also developed diarrhea. She has had some chills as well as urinary frequency but denies dysuria. She denies chest pain or shortness of breath. She does complain of some pain to the left ear and left jaw. Family states that she did recently have a dental infection and is scheduled to see her dentist in December. [facility] Medical History Dementia Headache Health care maintenance Memory loss Osteoarthritis Osteoporosis Home Medications multivitamin 1 tab PO DAILY 09/06/22 [History Last Taken Unknown] donepezil 5 mg tablet See Rx Instructions .Route .COMPLEX #30 tabs 10/30/22 [Rx Last Taken Unknown] ondansetron 4 mg disintegrating tablet 4 mg PO Q6H PRN nausea and vomiting #7 tabs 03/27/23 [Rx Last Taken Unknown] cephalexin 500 mg capsule 500 mg PO Q12 #14 CAPSULES 10/30/23 [Rx Last Taken Unknown] ondansetron 4 mg disintegrating tablet 4 mg PO Q8H PRN PRN Nausea #10 tabs 10/30/23 [Rx Last Taken Unknown] Allergy/AdvReac Type Severity Reaction Status Date / Time No Known Allergies Allergy Verified 10/30/23 10:42 Surgical History History of History of hysterectomy Hx of oral surgery Social History Smoking Status: Never smoker alcohol intake: never substance use type: does not use ROS ROS ED Constitutional Constitutional ED: Reports chills; Denies fever(s) Eyes Eyes: Denies discharge from eye(s) ENT ENT ED: Reports other Details: Left jaw pain ; Denies discharge from eye(s), rhinorrhea or sore throat Cardiovascular Cardiovascular: Denies chest pain or palpitations Respiratory/Chest Respiratory/Chest: Denies cough or dyspnea Gastrointestinal Gastrointestinal: Reports diarrhea, nausea and vomiting; Denies abdominal pain Genitourinary Genitourinary ED: Reports urinary frequency; Denies dysuria Musculoskeletal Musculoskeletal: Denies back pain or extremity pain Integumentary Denies Abrasions or rash Neurologic Neurologic: Reports headache(s) and weakness Psychiatric Psychiatric: Denies anxiety or depression Allergic/Immunologic Allergic/Immunologic ED: Denies lip swelling or urticaria EXAM Physical Exam Const Vital Signs: 10/30/23 10:42 10/30/23 13:35 Temperature 97.0 F L Temperature Source Temporal Pulse Rate 89 70 Respiratory Rate 16 18 Blood Pressure 143/80 H 142/80 H Blood Pressure Mean 101 97 Pulse Ox 99 96 Oxygen Delivery Method Room Air Positive well nourished and well developed General Appearance ED: well developed HEENT Reports dry mucous membranes HEENT Narrative: Intraoral examination reveals no focal gum tenderness or edema. Mouth ED: Yes dry mucous membranes Mouth: dry mucous membranes Eyes EOMs intact bilaterally Chest Wall inspection of chest normal and palpation of chest normal Resp normal respiratory effort and clear to auscultation bilaterally Cardio Rhythm: abnormal rhythm irregularly irregular GI non-tender Auscultation: hypoactive bowel sounds Palpation: soft Extremity normal to inspection Neuro oriented x3 Neuro Narrative: No focal neurologic deficit. Psych mental status grossly normal Skin no rashes or lesions noted MDM MDM MDM Narrative Medical decision making narrative: Patient placed on cardiac exercise physiologist. EKG obtained to evaluate for cardiac arrhythmia/ischemia. IV line established. Patient given IV fluids along with Zofran. Labwork obtained to evaluate for leukocytosis, anemia, and electrolyte derangement. Urinalysis obtained to evaluate for infection/hematuria. History & Record Review Discussion w/independent historian: Patient Lab Data Attestation: I reviewed the patient's lab results. Labs: Laboratory Results - last 24 hr 10/30/23 10/30/23 11:45 12:50 WBC 11.1 H RBC 4.45 Hgb 14.1 Hct 41.7 MCV 93.7 MCH 31.7 MCHC 33.8 RDW Std Deviation 45.1 H RDW Coeff of Lester 13.2 Plt Count 225 MPV 9.2 Immature Gran % (Auto) 0.700 Neut % (Auto) 83.2 H Lymph % (Auto) 10.4 L [place] % (Auto) 5.5 Eos % (Auto) 0.0 Baso % (Auto) 0.2 Absolute Neuts (auto) 9.2 H Absolute Lymphs (auto) 1.15 Nucleated RBC % 0 Sodium 141 Potassium 3.9 Chloride 109 H Carbon Dioxide 28.0 Anion Gap 4 L BUN 23 H Creatinine 1.06 H Estim Creat Clear Calc 34.79 Est GFR (MDRD) Af Amer 66 Est GFR (MDRD) Non-Af 54 L BUN/Creatinine Ratio 21.7 H Glucose 118 H Calcium 10.1 Total Bilirubin 0.30 Direct Bilirubin 0.10 AST 27 ALT 35 Alkaline Phosphatase 107 Troponin I High Sens 15 Total Protein 7.2 Albumin 3.5 Globulin 3.7 Lipase 28 Urine Color Yellow Urine Clarity Sl. Cloudy Urine pH 6.0 Ur Specific [place] 1.020 Urine Protein Negative Urine Glucose (UA) Normal Urine Ketones 5 H Urine Occult Blood 50 H Urine Nitrite Positive H Urine Bilirubin Negative Urine Urobilinogen Normal Ur Leukocyte Esterase 100 H Urine RBC 0 SEEN Urine WBC 10-25 SEEN Ur Squamous Epith Cells 10-25 SEEN Urine Bacteria 2+ Urine Mucus 0 SEEN EKG Initial EKG: Attestation: I personally reviewed and interpreted this EKG as follows: Interpretation: Sinus Rhythm (Sinus at 82 with no acute ischemia.) Treatment and Re-Evaluation :: CBC was a white count 11.1 with 83% neutrophils. Hemoglobin 14.1. Chemistry studies reveal normal potassium. BUN is 23 and creatinine is 1.06. Glucose is 118. LFTs and lipase are normal. Troponin is normal at 15. Urinalysis does reveal positive nitrates with 10-25 white cells, 10-25 epithelial cells, and 2+ bacteria. Patient is having urinary frequency. On repeat evaluation patient reports feeling much improved. She will be treated with a course of Keflex and given some Zofran to help with nausea. Patient and family are comfortable this plan. Return instructions given. Discharge Plan Triage Chief Complaint: Nausea/Vomiting/Diarrhea ED Provider: Dolores Mckeon Dx/Rx/DC Orders Clinical Impression: UTI (urinary tract infection), Vomiting Instructions: ED Cystitis Female Adult, ED Vomiting (Adult) Prescriptions: New ondansetron 4 mg tablet,disintegrating 4 mg PO Q8H PRN PRN (Reason: Nausea) Qty: 10 0RF cephalexin 500 mg capsule 500 mg PO Q12 Qty: 14 0RF No Action multivitamin Tablet 1 tab PO DAILY ondansetron 4 mg tablet,disintegrating 4 mg PO Q6H PRN (Reason: nausea and vomiting) Qty: 7 0RF donepezil 5 mg tablet See Rx Instructions .ROUTE .COMPLEX Qty: 30 1RF Dose Instruction: TAKE 1 TABLET BY MOUTH EVERYDAY AT BEDTIME Rx Instructions: TAKE 1 TABLET BY MOUTH EVERYDAY AT BEDTIME Primary Care Provider: Izaiah Freeman Referrals: Izaiah Freeman MD [Primary Care Provider] - 1-2 Weeks Disposition Disposition: Home, Self Care
[2023-10-30] MEDS: Ondansetron 4 MG/2 ML Vial IV (11:55)
[2023-10-30] MEDS: 0.9% Normal Saline (1000mL) 1,000 ML 100 ML IV (11:55)
[2023-10-30 12:08] LABS: Absolute Lymphocyte Count 1.15 X10^3/uL (0.83-4.51); Absolute Neutrophil Count 9.2 X10^3/uL (2.0-7.7); Basophil# 0.02 X10^3/uL; Basophil% 0.2 % (0-1); Hematocrit 41.7 % (37-47); Hemoglobin 14.1 g/dL (12.0-15.0); Lymphocyte # 1.15 X10^3/ul (0.83-4.51); Lymphocyte % 10.4 % (19-41); Mean Corp Hgb Conc 33.8 g/dL (32-36); Mean Corpuscular Hgb 31.7 pg (27.0-32.0); Mean Corpuscular Volume 93.7 fL (81-99); Mean Platelet Vol. 9.2 fl (6.2-12.0); Monocyte# 0.61 X10^3/uL; Monocyte% 5.5 % (0-10); NRBC Flagged by Analyzer 0 % (0-5); Neutrophil % 83.2 % (47-70); Platelet Count 225 K/mm3 (150-450); RBC Distribution Width CV 13.2 % (11.6-14.6); RBC Distribution Width SD 45.1 fl (35.1-43.9); Red Blood Count 4.45 M/mm3 (4.2-5.4); White Blood Count 11.1 K/mm3 (4.4-11.0)
[2023-10-30 12:46] LABS: AST(SGOT) 27 U/L (15-37); Alanine Aminotransfer ALT/SGPT 35 U/L (13-56); Albumin, Serum 3.5 g/dL (3.2-5.0); Alkaline Phosphatase 107 U/L (45-117); Anion Gap 4 (5-15); BUN 23 mg/dL (7-18); BUN/Creat Ratio 21.7 RATIO (10-20); Calcium,Total 10.1 mg/dL (8.5-10.1); Chloride 109 mmol/L (98-107); Creatinine, Serum 1.06 mg/dL (0.55-1.02); EST Glomerular Filtration Rate 54 mL/min (>60); Est Glom Filt Rate - Afr Amer 66 mL/min (>60); Estimated Creatinine Clearance 34.79 ml/min; Globulin 3.7 g/dL (2.2-4.2); Glucose 118 mg/dL (74-106); Lipase 28 U/L (13-75); Potassium 3.9 mmol/L (3.5-5.1); Protein, Total 7.2 g/dL (6.4-8.2); Sodium Level 141 mmol/L (136-145); Troponin-I HS 15 pg/mL (3.0-54.0)
[2023-10-30 13:10] LABS: Mucous, Urine 0 SEEN /hpf (<or=2+); Red Blood Cells-Urine 0 SEEN /hpf (0-5)
[2023-10-30 13:34] LABS: Color, Urine Yellow (Yellow); Glucose, Dipstick Normal (Normal); Ketone-Dipstick 5 mg/dl (Negative); Leukocyte Esterase-Dipstick 100 /ul (Negative); Nitrite-Dipstick Positive (Negative); Occult Blood-Urine 50 /ul (Negative); Protein-Dipstick Negative (Negative); Urine Bilirubin Dipstick Negative (Negative); Urine Clarity Sl. Cloudy (Clear); Urine Urobilinogen Normal (Normal)
[2023-10-30 13:35] VITALS: BP 142/80; PULSE 70; RESP 18; O2SAT 96
[2023-10-30 13:45] LABS: Bacteria 2+ /hpf (None Seen); Squamous Epithelial Cells - UA 10-25 SEEN /hpf (5-10); White Blood Cells 10-25 SEEN /hpf (0-5)
[2023-10-30 14:25] VITALS: BP 149/77; PULSE 70; RESP 17; TEMP 37.3; O2SAT 98
[2023-10-30] MEDS: Cephalexin 250 MG Capsule 500 MG PO (14:30)
== END 2023-10-30 14:39 | disposition home or self-care (01) ==
PROVIDERS: Emergency Provider Emergency Medicine; PCP Internal Medicine; Visit Provider Emergency Medicine
DX: N39.0 Urinary tract infection, site not specified (principal); F03.90 Unspecified dementia, unspecified severity, without behavioral disturbance, psychotic disturbance, mood disturbance, and anxiety; R11.2 Nausea with vomiting, unspecified; G43.909 Migraine, unspecified, not intractable, without status migrainosus; Z79.899 Other long term (current) drug therapy; Z90.710 Acquired absence of both cervix and uterus
CPT/HCPCS: 80048; 80076; 81001; 83690; 84484; 85025; 87631; 93005; 96361; 96374; 99283; J7030; A4216; J2405

== ENCOUNTER → 2024-01-20 | Outpatient (CLI) | payer MEDICARE, SELFPAY ==
--- NOTE | 2024-01-20 08:14 | MRI_ITS ---
STUDY: MRI LEFT HIP REASON FOR EXAM: Female, 73 years old. LT HIP TRAUMA, FX SUSPECTED TECHNIQUE: Standardized fat and water weighted pulse sequences were obtained in all 3 orthogonal planes. COMPARISON: None. FINDINGS: There is mild articular narrowing of the hip joint, with less than 50% loss of the hyaline cartilage. Normal acetabulum. Normal labrum. Normal femoral head. Normal femoral neck and intratrochanteric region. There is no demonstrated fracture. There is a moderate joint effusion. Edema surrounding the iliopsoas tendon insertion worrisome for partial tear. No gluteal tendinosis and peritendinitis. There is no trochanteric, iliopsoas or iliopectineal bursitis. Normal superior and inferior pubic rami. Normal pubic symphysis. Normal ischial tuberosity. Normal origin of the hamstring tendons. Normal visualized iliac wing, sacroiliac joint, and sacral ala. Normal visualized soft tissue structures of the pelvis. MRI/Lower Ext Joint Only (Routine) IMPRESSION: 1. Partial tear of the iliopsoas tendon insertion (hip flexor). 2. Moderate joint effusion. 3. No femoral neck fracture. Electronically Signed: Benny Fox MD at 10:28 EDT ,
== END | disposition home or self-care (01) ==
LOC: MRI 08:09
PROVIDERS: PCP Internal Medicine; Referring Provider Physician Assistant; Visit Provider Physician Assistant
DX: S70.02XA Contusion of left hip, initial encounter (principal); M25.552 Pain in left hip
CPT/HCPCS: 73721